=== PATIENT | female | born 1950 | race Caucasian/White ===

== ENCOUNTER 2020-06-08 14:42 | Inpatient (IN) | payer OTHER ==
[~2020-06-08] VITALS: Ht 165.1 cm; Wt 67.6 kg
[2020-06-08] MEDS ORDERED: METF-442 PO (16:20)
[2020-06-08] MEDS ORDERED: ATOR20TA PO (16:20)
[2020-06-08] MEDS ORDERED: LISI20TA30 PO (16:20)
[2020-06-08] MEDS ORDERED: OMEP20CA15 PO (16:20)
[2020-06-08] MEDS ORDERED: Z GUARD REMEDY 2 OZ OINT TP PRN (16:30)
[2020-06-08] MEDS ORDERED: MAG HYDROX/AL HYDROX/SIMETH 30 ML UDC PO PRN (16:30)
[2020-06-08] MEDS ORDERED: ONDANSETRON HCL/PF 4 MG/2 ML VIAL IVP PRN (16:30)
[2020-06-08] MEDS ORDERED: DEXTROSE 50%-WATER 50 ML DISP.SYRIN IV PRN (16:30)
[2020-06-08 17:18] VITALS: BP 116/63
[2020-06-08] MEDS ORDERED: PIPERACILLIN /TAZOBACTAM 3.375 G in IV D5W 50 ML IV SCH (18:00)
[2020-06-08] MEDS: BLOOD SUGAR DIAGNOSTIC 1 EACH STRIP VI SCH ×2 (18:21→22:13)
--- NOTE | 2020-06-08 19:00 | NUR ---
RN NOTE RECEIVED PATIENT IN BED, AO X 4 WITH EPISODES OF CONFUSION, IN NO S/SX OF ACUTE DISTRESS AT THIS TIME. NO SOB NOTED. PATIENT'S BREATHING IS EVEN AND UNLABORED. SATURATION AT 100% ON ROOM AIR, HR IS 80. NOTED IV SITE AT LEFT AC 20G, PATENT AND FLUSHING WELL, NO S/S OF INFECTION OR INFILTRATION. PATIENT IS AMBULATORY. SAFETY MEASURES IMPLEMENTED. PATIENT BED ALARM IS ON. HEAD OF BED ELEVATED. BED IS LOCKED, IN LOWEST POSITION AND SIDE RAILS UP. CALL LIGHT WITHIN REACH OF THE PATIENT. WILL CONTINUE TO MONITOR AND REASSESS FOR ANY CHANGES.
--- NOTE | 2020-06-08 19:11 | NUR ---
PATIENT RECEIVED FROM [facility] AT 1520 PM. AM [facility] TRANSPORTED PATIENT. SKIN ASSESSMENT DONE AND PHOTOS TAKEN OF RIGHT TOE CELLULITIS. VITAL SIGNS TAKEN. SAFETY PRECAUTIONS IMPLEMENTED, BED LOCKED IN LOWEST POSITION, SIDE RAILS UP X2, CALL LIGHT WITHIN REACH. WILL ENDORSE CONTINUATION OF CARE TO UPCOMING SHIFT.
[2020-06-08] MEDS: HYDROCODONE/APAP 5/325MG TABLET PO PRN (19:33)
[2020-06-08 20:00] VITALS: BP 122/64
--- NOTE | 2020-06-08 22:00 | NUR ---
RN NOTE NOTED FINGER STICK BS 407, REPEATED AND REVEALED 443. ADMINISTERED 10 UNITS PER SLIDING SCALE, NOTIFIED DR ANDREWS, ORDERS RECEIVED TO GIVE 6 MORE UNITS OF INSULIN ONCE. PARTS EXPEDITER MADE AWARE.
[2020-06-08] MEDS: *INSULIN REGULAR(HUMULIN R)HUM 100 UNIT/ML VIAL SQ PRN (22:16)
[2020-06-08] MEDS ORDERED: INSULIN REGULAR, HUMAN 100 UNIT/ML 10 ML VIAL SQ ONE (23:00)
[2020-06-09] MEDS: PIPERACILLIN /TAZOBACTAM 3.375 G in IV D5W 50 ML IV SCH ×5 (00:07→23:04)
[2020-06-09 04:00] VITALS: BP 102/61
[2020-06-09] MEDS: VANCOMYCIN 1 GM in IV D5W 250 ML IV SCH (05:45)
[2020-06-09 06:18] LABS: BASOPHILS % (AUTO) 0.4 % (0.0-2.0); EOSINOPHILS % (AUTO) 1.6 % (0.0-6.0); HEMATOCRIT 38 % (33-45); HEMOGLOBIN 12.7 g/dL (11.5-14.8); LYMPHOCYTES # (AUTO) 1.3 /CMM (0.8-4.8); LYMPHOCYTES % (AUTO) 26.9 % (20.0-44.0); MEAN CORPUSCULAR HGB CONC 34 g/dl (31.0-36.0); MEAN CORPUSCULAR VOLUME 96 fL (82-100); MONOCYTES # (AUTO) 0.5 /CMM (0.1-1.30); MONOCYTES % (AUTO) 10.5 % (2.0-12.0); NEUTROPHILS % (AUTO) 60.6 % (43.0-81.0); PLATELET COUNT (AUTO) 238 /CMM (150-450); RED BLOOD CELL COUNT(AUTO) 3.93 MIL/uL (4.0-5.2); WHITE BLOOD COUNT (AUTO) 4.9 K/uL (4.3-11.0)
[2020-06-09 06:43] LABS: CALCIUM, SERUM 8.7 mg/dL (8.5-10.1); CREATININE 0.9 mg/dL (0.6-1.3); PHOSPHORUS 3.1 mg/dL (2.5-4.9); POTASSIUM 4.2 mmol/L (3.5-5.1)
--- NOTE | 2020-06-09 07:30 | NUR ---
RN OPENING NOTE PATIENT PRESENT IN BED, ALERT, A/OX3, ON ROOM AIR, SPO2 100%, NO SOB, DISTRESS NOTED, DENIES PAIN, DISCOMFORT,, RESTING COMFORTABLY, L AC IV LINE PATENT AND FLUSHED , SAFETY PRECISIONS IN PLACE, BED ALARM ON, BED LOCKED, IN LOWEST POSITION, CALL LIGHT IN REACH, VERBALIZED UNDERSTANDING , WILL CONT TO MONITOR
[2020-06-09] MEDS: BLOOD SUGAR DIAGNOSTIC 1 EACH STRIP VI SCH ×4 (07:54→21:40)
[2020-06-09] MEDS: INSULIN REGULAR, HUMAN 100 UNIT/ML 3 ML VIAL SQ PRN ×3 (07:57→17:27)
[2020-06-09 08:00] VITALS: BP 107/56
--- NOTE | 2020-06-09 08:00 | NUR ---
AGREED WITH INSULIN COVERAGE , EDUCATION REGARDING PROVIDED, VERBALIZE UNDERSTANDING
[2020-06-09] MEDS: LISINOPRIL (20MG) 20 MG TABLET PO SCH (10:21)
[2020-06-09 12:00] VITALS: BP 100/55
[2020-06-09 16:00] VITALS: BP 124/74
--- NOTE | 2020-06-09 18:40 | NUR ---
RN CLOSING NOTES PATIENT REMAINS IN ROOM, STABLE, COOPERATIVE, ,MEDICATIONS GIVEN, ASSISTANCE PROVIDED , SAFETY MEASURES IMPLEMENTED, WILL ENDORSE TO PM SHIFT RN FOR PETE
--- NOTE | 2020-06-09 19:30 | NUR ---
RN OPENING NOTES: RECEIVED PT A/OX3-4 IN BED RESTING COMFORTABLY. PATIENT IN NO S/SX OF ACUTE DISTRESS AT THIS TIME. NO SOB NOTED. PATIENT'S BREATHING IS EVEN AND UNLABORED PATIENT IS ON ROOM AIR; TOLERATING WELL. PATIENT ON CONSISTENT CARB DIET; TOLERATES WELL. NOTED IV SITE ON L AC#20; PATENT, INTACT AND FLUSHING WELL; NO S/S OF INFECTION OR INFILTRATION. SAFETY MEASURES HAVE BEEN PROVIDED AND IMPLEMENTED. PATIENT BED ALARM IS ON. HEAD OF BED ELEVATED. BED IS LOCKED, IN LOWEST POSITION AND SIDE RAILS UP. CALL LIGHT WITHIN REACH OF THE PATIENT. APPLICABLE ISOLATION PRECAUTIONS IN PLACE. WILL CONTINUE TO MONITOR AND REASSESS FOR ANY CHANGES AND WILL CARRY OUT ANY ONGOING AND ACTIVE MD ORDER.
[2020-06-09 20:00] VITALS: BP 112/64
[2020-06-09] MEDS: ATORVASTATIN 10 MG TABLET PO SCH (21:15)
[2020-06-09] MEDS: *INSULIN REGULAR(HUMULIN R)HUM 100 UNIT/ML VIAL SQ PRN (21:40)
--- NOTE | 2020-06-09 22:00 | NUR ---
RN NOTES NOTED IV LINE ON L AC TO BE INFILTRATED AND NON-PATENT. FACILITATED CHANGE AND REINSERTION OF IV LINE @ L HAND #22; SECURED, INTACT AND FLUSHING WELL. PROOF PASSER MADE AWARE. WILL CONTINUE TO MONITOR AND ASSESS THROUGHOUT THE SHIFT
--- NOTE | 2020-06-09 23:00 | NUR ---
RN NOTES NO CHANGE IN PATIENT CONDITION AT THIS TIME PATIENT VITALS STABLE, NO SIGNS OF ACUTE RESPIRATORY DISTRESS. LAST CHALKER MADE AWARE. WILL CONTINUE TO MONITOR AND REASSESS FOR ANY CHANGES THROUGHOUT THE SHIFT.
[2020-06-10] MEDS: HYDROCODONE/APAP 5/325MG TABLET PO PRN (00:07)
[2020-06-10 04:00] VITALS: BP 103/63
[2020-06-10] MEDS: PIPERACILLIN /TAZOBACTAM 3.375 G in IV D5W 50 ML IV SCH ×3 (05:02→17:01)
[2020-06-10 06:40] LABS: CALCIUM, SERUM 8.8 mg/dL (8.5-10.1); CREATININE 0.8 mg/dL (0.6-1.3); POTASSIUM 4.1 mmol/L (3.5-5.1)
--- NOTE | 2020-06-10 06:44 | NUR ---
RN CLOSING NOTE: PATIENT REMAINS IN ROOM IN NO SIGNS OF RESPIRATORY DISTRESS, PATIENT STILL ON ROOM AIR; TOLERATING WELL SATURATING @ >95% SP02. SAFETY MEASURES IMPLEMENTED, BED IN LOWEST POSITION, LOCKED, SIDE RAILS UP, CALL LIGHT WITHIN REACH. ALL NEEDS AND ORDERS ADDRESSED DURING THE SHIFT. IV ACCESS MAINTAINED INTACT, SECURED AND FLUSHING WELL. ALL DUE MEDS GIVEN ORDERED & SCHEDULED ; PATIENT TOLERATED WELL. PATIENT KEPT CLEAN AND COMFORTABLE WITHIN THE SHIFT. PATIENT ENDORSED TO INCOMING SHIFT RN WITH STABLE VITAL SIGN AND FOR CONTINUITY OF CARE.
--- NOTE | 2020-06-10 07:05 | NUR ---
RN NOTES: RECEIVED PT ON BED, A/OX3-4 IN BED RESTING COMFORTABLY. DENIES ANY DISTRESS NOTED, ON RA, NO SOB NOTED, O2 SAT WNL. L HAND IV SITE CLEAN, DRY AND INTACT, SAFETY MEASURES HAVE BEEN PROVIDED AND IMPLEMENTED. PATIENT BED ALARM IS ON. HEAD OF BED ELEVATED. BED IS LOCKED, IN LOWEST POSITION AND SIDE RAILS UP. CALL LIGHT WITHIN EASY REACH , WILL CONTINUE TO MONITOR.
[2020-06-10 08:00] VITALS: BP 101/56
[2020-06-10] MEDS: LISINOPRIL (20MG) 20 MG TABLET PO SCH (08:10)
[2020-06-10] MEDS: INSULIN REGULAR, HUMAN 100 UNIT/ML 3 ML VIAL SQ PRN ×2 (08:13→11:29)
[2020-06-10] MEDS: BLOOD SUGAR DIAGNOSTIC 1 EACH STRIP VI SCH ×4 (08:13→21:47)
--- NOTE | 2020-06-10 11:21 | NUR ---
RN NOTES UM=[id number] , REPEATED 436 , DR NORRIS NOTIFED, NO SIGN AND SYMPTOMS OF HYPERGLYCEMIA NOTED, NEW ORDER RECEIVED FOR INSULIN SQ. CONTINUE TO MONITOR.
--- NOTE | 2020-06-10 13:04 | NUR ---
RN NOTES BG 466, DR JR VILLA, NEW ORDER RECEIVED FOR 20 UNITS REGULAR, INSULIN SQ, CONTINUE TO MONITOR.
[2020-06-10] MEDS ORDERED: INSULIN REGULAR, HUMAN 100 UNIT/ML 3 ML VIAL SQ ONE (13:30)
[2020-06-10 16:00] VITALS: BP 104/57
--- NOTE | 2020-06-10 17:00 | NUR ---
RN NOTES BG =54, REPEATED =63, NO SIGN AND SYMPTOMS OF HYPOGLYCEMIA NOTED, DINNER GIVEN , CONTINUE TO MONITOR .
[2020-06-10] MEDS: VANCOMYCIN 1 GM in IV D5W 250 ML IV SCH ×2 (17:31)
--- NOTE | 2020-06-10 18:00 | NUR ---
RN NOTES PT SITTING UP ON THE EDGE OF THE BED, VSS STABLE, NO DISTESS NOTED, WILL ENDORSE TO COMPUTERIZED TABLE CUTTER NURSE FOR CONTINUITY OF CARE .
[2020-06-10 20:00] VITALS: BP_SYST 105; BP_SYST 92; BP_DIAS 50; BP_DIAS 52
--- NOTE | 2020-06-10 20:11 | NUR ---
RN NOTE PATIENT RESTING IN BED. ALERT AND ORIENTED X3-4. ON ROOM AIR, O2 SAT >95%. NO RESPIRATORY DISTRESS NOTED. DENIES ANY PAIN AT THIS TIME. IV ACCESS ON LEFT HAND #22, PATENT AND INTACT. NO S/S OF INFILTRATION. BED LOCKED AND IN LOWEST POSITION AND SIDE RAILS UP. CALL LIGHT WITHIN REACH. SAFETY PRECAUTIONS IMPLEMENTED. WILL CONTINUE TO MONITOR.
[2020-06-10] MEDS: MAGNESIUM HYDROXIDE 30 ML UDC PO PRN (21:08)
[2020-06-10] MEDS: ATORVASTATIN 10 MG TABLET PO SCH (21:08)
[2020-06-10] MEDS: *INSULIN REGULAR(HUMULIN R)HUM 100 UNIT/ML VIAL SQ PRN (21:42)
[2020-06-11] MEDS: PIPERACILLIN /TAZOBACTAM 3.375 G in IV D5W 50 ML IV SCH ×5 (00:02→23:24)
[2020-06-11] MEDS: ACETAMINOPHEN 325 MG TABLET PO PRN ×2 (00:18→23:46)
[2020-06-11 04:00] VITALS: BP 94/66
[2020-06-11 06:17] LABS: CALCIUM, SERUM 8.8 mg/dL (8.5-10.1); CREATININE 0.8 mg/dL (0.6-1.3); POTASSIUM 4.1 mmol/L (3.5-5.1)
--- NOTE | 2020-06-11 06:48 | NUR ---
RN NOTE PATIENT ALERT AND ORIENTED X3-4. ON ROOM AIR, O2 SAT >98%. NO RESPIRATORY DISTRESS NOTED. DENIES ANY PAIN AT THIS TIME. IV ACCESS ON LEFT HAND #22, PATENT AND INTACT. NO S/S OF INFILTRATION. ASSISTED PATIENT TO RESTROOM, VOIDED YELLOW URINE X2 DURING THIS SHIFT. ALL DUE MEDS GIVEN ORDERED. BED LOCKED AND IN LOWEST POSITION AND SIDE RAILS UP. CALL LIGHT WITHIN REACH. SAFETY PRECAUTIONS IMPLEMENTED. WILL ENDORSE TO AM SHIFT.
--- NOTE | 2020-06-11 07:10 | NUR ---
RN NOTES: RECEIVED PT IN ROOM , UP AN WALKING AROUND, A/OX4, DENIES ANY DISTRESS, ON RA, NO SOB NOTED, O2 SAT WNL. L HAND IV SITE CLEAN, DRY AND INTACT, CALL LIGHT WITHIN EASY REACH , WILL CONTINUE TO MONITOR.
[2020-06-11 08:00] VITALS: BP 106/54
[2020-06-11] MEDS: LISINOPRIL (20MG) 20 MG TABLET PO SCH (08:24)
[2020-06-11] MEDS: INSULIN REGULAR, HUMAN 100 UNIT/ML 3 ML VIAL SQ PRN ×4 (08:27→21:31)
[2020-06-11] MEDS: BLOOD SUGAR DIAGNOSTIC 1 EACH STRIP VI SCH ×4 (08:28→21:24)
--- NOTE | 2020-06-11 09:40 | NUR ---
WOUND CARE CONSULT: PT PRESENTS WITH WOUND BETWEEN RT 4TH AND 5TH TOES, PRESENT ON ADMISSION. RECOMMEND DPM CONSULT. DR TONY NOTIFIED OF CONSULT REQUEST. PT IS AMBULATORY AND CONTINENT. MD IN AGREEMENT WITH PLAN OF CARE.
[2020-06-11] MEDS: VANCOMYCIN 1 GM in IV D5W 250 ML IV SCH (12:51)
[2020-06-11 16:00] VITALS: BP 127/56
--- NOTE | 2020-06-11 16:00 | NUR ---
RN NOTES PT C/O LEFT HAND IV SITE, IV SITE DISCONTINUED, NEW IV SITE RESTARTED ON G 20 .
--- NOTE | 2020-06-11 18:41 | NUR ---
RN NOTES PT STABLE, DEXTER ANY DISTRESS ,WILL ENDORSE TO WASTE SALVAGER NURSE FOR CONTINUITY OF CARE .
--- NOTE | 2020-06-11 19:10 | NUR ---
RN OPENING NOTE RECEIVED PATIENT IN BED RESTING ALERT ORIENTED X3 S/P CONFUSION,ON ROOM AIR O2:100% AMBULATORY CONTINENT TO BOWEL/BLADDER,IV SITE IS ON RIGHT FOREARM INTACT PATENT,SAFETY MEASURE IMPLEMENT,BED IN LOW POSITION AND LOCKED,CALL LIGHT WITHIN REACH,CONTINUE TO MONITOR.
[2020-06-11 20:00] VITALS: BP 106/57
[2020-06-11] MEDS: ATORVASTATIN 10 MG TABLET PO SCH (21:17)
[2020-06-11] MEDS: MAGNESIUM HYDROXIDE 30 ML UDC PO PRN (21:36)
--- NOTE | 2020-06-11 23:46 | NUR ---
RN NOTE TYLENOL 650 MG PRN GIVEN FOR MILD PAIN / CONTINUE TO MONITOR.
[2020-06-12 04:00] VITALS: BP 106/52
[2020-06-12] MEDS: PIPERACILLIN /TAZOBACTAM 3.375 G in IV D5W 50 ML IV SCH ×2 (05:18→11:35)
--- NOTE | 2020-06-12 06:55 | NUR ---
RN NOTE RECEIVED VANCOMYCIN TROUGH IS 13 VANCO IV GIVEN MD ORDERED.
[2020-06-12] MEDS: VANCOMYCIN 1 GM in IV D5W 250 ML IV SCH (06:58)
--- NOTE | 2020-06-12 07:03 | NUR ---
RN CLOSING NOTE PATIENT REMAINS ON ALERT ORIENTED X3 VERBALLY RESPONSIVE ON ROOM AIR O2:99% NO SOB NOT ACUTE DISTRESS NOTED,IV SITE IS ON RIGHT FOREARM INTACT PATENT,ALL DUE MEDS GIVEN MD ORDERED,KEPT CALL LIGHT WITHIN REACH,KEPT COMFORTABLE,ALL NEEDS MET ENDORSE NEXT COMING SHIFT FOR CONTINUATION OF CARE.
[2020-06-12 07:12] LABS: CREATININE 0.8 mg/dL (0.6-1.3); POTASSIUM 3.9 mmol/L (3.5-5.1)
[2020-06-12] MEDS: BLOOD SUGAR DIAGNOSTIC 1 EACH STRIP VI SCH ×2 (07:30→11:35)
--- NOTE | 2020-06-12 07:30 | NUR ---
RN OPENING NOTE PATIENT RECEIVED IN BED RESTING IN SEMI-FOWLERS POSITION ALERT AND ORIENTED X3-2 WITH PERIODS OF CONFUSION. PATIENT IS ON ROOM AIR WITH NO S/S OF RESPIRATORY DISTRESS OR SOB, TOLERATING WELL. PATIENT DENIES ANY PAIN. RIGHT FOREARM #22 PATENT AND INTACT AND CURRENTLY RUNNING VANCOMYCIN. SAFETY PRECAUTIONS IMPLEMENTED, BED LOCKED AND IN LOWEST POSITION, SIDE RAILS UP X2, CALL LIGHT WITHIN REACH. WILL CONTINUE TO MONITOR AND PROVIDE CARE THROUGHOUT SHIFT.
[2020-06-12] MEDS: LISINOPRIL (20MG) 20 MG TABLET PO SCH (09:05)
[2020-06-12] MEDS: INSULIN REGULAR, HUMAN 100 UNIT/ML 3 ML VIAL SQ PRN ×2 (09:06→11:36)
[2020-06-12] MEDS ORDERED: SULF1TAB48 PO (09:16)
[2020-06-12 12:00] VITALS: BP 113/44
--- NOTE | 2020-06-12 13:08 | NUR ---
patient transferred home in stable condition. wound care education and demonstration provided for client and family. patient and family verbalized understanding and returned demonstration. discharge instruction and paperwork provided for client. patient care transferred over to [place].
== END 2020-06-12 13:24 | disposition home or self-care (01) | DRG 603 ==
LOC: MEDSG1 15:20
PROVIDERS: ADMIT Internal Medicine; ATTEND Internal Medicine
DX: L03.115 Cellulitis of right lower limb (principal); I10 Essential (primary) hypertension; E78.5 Hyperlipidemia, unspecified; Z79.899 Other long term (current) drug therapy; E11.42 Type 2 diabetes mellitus with diabetic polyneuropathy; E11.621 Type 2 diabetes mellitus with foot ulcer; L97.519 Non-pressure chronic ulcer of other part of right foot with unspecified severity; E11.65 Type 2 diabetes mellitus with hyperglycemia
CPT/HCPCS: 36415; 73620-TC; 80048-TC; 80202-TC; 82947-TC; 82962-TC; 83735-TC; 84100-TC; 85025-TC; 87070-TC; A6403; G0378; J1815; J2543; J3370; J7050; J7060